=== PATIENT | female | born 1975 | race African-American/Black ===

== ENCOUNTER 2017-06-05 12:31 | Emergency (ER) | payer OTHER ==
[~2017-06-05] VITALS: Ht 152.4 cm; Wt 136.3 kg
[~2017-06-05 12:31] MED LIST: BACTRIM,SEPT1 TABLET PO; COLACE100 MG PO; CYCLOBENZAPRINE10 MG PO; ENDOCET 5-3251 EACH PO; ERGOCALCIF50000 UNIT PO; FERROUS SULFAT325 MG PO; HYDROCHLOROTHIA25 MG PO; HYDROCODON-ACE1 EAC7 PO; LISINOP/HCTZ TAB 20- PO; LISINOPRIL-HCT1 EAC3 PO; METFORMIN HCL500 MG PO; NAPROXEN500 MG PO; NORCO 5/3251 TABLET PO; PERCOCET 5/31 TABLET PO; ULTRAM50 MG PO
[2017-06-05 16:27] LABS: HEMATOCRIT 30.4 % (36.0-46.0); MCH 23.4 PG (29.0-34.0); MCHC 30.3 G/DL (30.0-36.0); MCV 77.4 FL (83-99); MEAN PLAT.VOLUME 12.9 uM^3 (9.5-12.4); PLATELET COUNT 280 K/uL (156-360); RBC DIS.WIDTH-CV 18.1 % (11.8-14.6); RBC DIS.WIDTH-SD 50.1 % (39-53); RED BLOOD COUNT 3.93 M/uL (3.80-5.20); WHITE BLOOD COUNT 7.2 K/uL (4.1-10.2)
[2017-06-05 16:34] LABS: ADD MIUA? YES; BILIRUBIN NEGATIVE; BLOOD NEGATIVE; COLOR YELLOW ((YELLOW)); GLUCOSE (STRIP) NEGATIVE; KETONES NEGATIVE; LEUKOCYTES NEGATIVE; NITRITE NEGATIVE; PROTEIN (STRIP) 100; SPECIFIC GRAVITY 1.026 (1.000-1.030); UROBILINOGEN 0.2 MG/DL (0.2-1.0)
[2017-06-05 16:36] LABS: CHLORIDE 106 mEq/L (99-109); POTASSIUM 3.6 mEq/L (3.7-5.4); SODIUM 143 mEq/L (136-147)
[2017-06-05 16:37] LABS: GLUCOSE 156 mg/dL (70-99)
[2017-06-05 16:39] LABS: ANION GAP 12 MEQ/L (2-14)
[2017-06-05 16:41] LABS: GFR ESTIMATE (CALCULATED) > 59 mL/min/
[2017-06-05 16:42] LABS: UREA NITROGEN (BUN) 12 mg/dL (9-23)
[2017-06-05 16:48] LABS: BACTERIA RARE /HPF; EPITHELIAL CELLS 1+ /HPF; MUCUS TRACE /LPF; RED BLOOD CELLS 0-5 /HPF (0-5); UCUL ADDED? NO; WHITE BLOOD CELLS 0-5 /HPF (0-5)
[2017-06-05] MEDS ORDERED: VALIUM5 MG PO (19:47)
[2017-06-05] MEDS ORDERED: INDOCIN50 MG PO (19:47)
[2017-06-05 20:39] VITALS: BP 161/92
== END 2017-06-05 20:39 | disposition home or self-care (01) ==
LOC: EME 12:31
PROVIDERS: Physician Assistant
DX: M54.41 Lumbago with sciatica, right side (principal); G89.29 Other chronic pain; R60.0 Localized edema; I10 Essential (primary) hypertension; F32.9 Major depressive disorder, single episode, unspecified; Z88.5 Allergy status to narcotic agent; Z88.6 Allergy status to analgesic agent
CPT/HCPCS: 80048; 81003; 83880; 85027; 93970; 99281; 99285; J1885; J3010